=== PATIENT | male | born 1935 | race Caucasian/White ===

== ENCOUNTER 2017-02-28 13:39 | Emergency (ER) | payer MEDICARE, BC ==
[2017-02-28 14:40] LABS: BASOPHILS 0.2 % (0-2); EOSINOPHILS 1.8 % (0-7); HEMATOCRIT 40.6 % (42.0-54.0); HEMOGLOBIN 14.1 g/dL (13.5-17.5); IMMATURE GRANULOCYTES 0.4 % (0-5); LYMPHOCYTES 30.1 % (15-50); MCH 32.6 pg (26.0-34.0); MCHC 34.7 g/dL (31.0-37.0); MCV 93.8 fL (80.0-100.0); MEAN PLATELET VOLUME 9.6 fL (7.4-10.4); MONOCYTES 6.7 % (2-11); NEUTROPHILS 60.8 % (40-80); PLATELET COUNT 160 10x3/uL (130-400); RBC 4.33 10x6/uL (4.20-6.10); RDW 12.7 % (11.5-14.5); WBC 8.6 10x3/uL (4.8-10.8)
[2017-02-28 15:01] LABS: ALBUMIN 3.8 g/dL (3.4-5.0); ALKALINE PHOSPHATASE 84 U/L (46-116); ALT (SGPT) 17 U/L (10-68); BILIRUBIN - TOTAL 0.49 mg/dL (0.2-1.3); CALC OSMOLALITY 286 mosm/kg (275-300); CALCIUM 8.9 mg/dL (8.5-10.1); CARBON DIOXIDE 27.9 mmol/L (21.0-32.0); CHLORIDE - SERUM 106 mmol/L (98-107); CREATININE - SERUM 0.9 mg/dL (0.6-1.3); GLUCOSE 111 mg/dL (74-106); POTASSIUM - SERUM 3.8 mmol/L (3.5-5.1); PROTEIN - SERUM 6.9 g/dL (6.4-8.2); SODIUM 143 mmol/L (136-145); UREA NITROGEN 15 mg/dL (7-18); eGFR NON AFRICAN AMERICAN 86 mL/min (90-120)
== END 2017-02-28 18:47 | disposition home or self-care (01) ==
LOC: D.ER 13:39
PROVIDERS: Emergency Medicine
DX: I10 Essential (primary) hypertension (principal); R41.0 Disorientation, unspecified; R00.1 Bradycardia, unspecified

== ENCOUNTER 2020-05-26 17:40 | Inpatient (IN) | payer MEDICARE, BC ==
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
--- NOTE | 2020-05-26 19:13 | NUR ---
GROUP HOME CONTACTED REGARDING PATIENT'S PSYCH EVAL AT 191.
[2020-05-26 20:11] LABS: BASOPHILS 0.3 % (0-2); EOSINOPHILS 0.8 % (0-7); HEMATOCRIT 36.1 % (42.0-54.0); HEMOGLOBIN 12.2 g/dL (13.5-17.5); IMMATURE GRANULOCYTES 0.3 % (0-5); LYMPHOCYTE ABS# 2.26 10x3/uL (1.32-3.57); LYMPHOCYTES 29.1 % (15-50); MCH 33.4 pg (26.0-34.0); MCHC 33.8 g/dL (31.0-37.0); MCV 98.9 fL (80.0-100.0); MEAN PLATELET VOLUME 9.9 fL (7.4-10.4); MONOCYTES 6.3 % (2-11); NEUTROPHIL ABS# 4.91 10x3/uL (1.78-5.38); NEUTROPHILS 63.2 % (40-80); PLATELET COUNT 167 10x3/uL (130-400); RBC 3.65 10x6/uL (4.20-6.10); RDW 13.2 % (11.5-14.5); WBC 7.8 10x3/uL (4.8-10.8)
[2020-05-26 20:20] LABS: APTT 24.7 SECONDS (22.8-39.4); INR 1.2 (0.85-1.17); PROTIME 14.1 SECONDS (11.6-15.0)
[2020-05-26 20:21] LABS: CALC OSMOLALITY 281 mosm/kg (275-300); CALCIUM 8.7 mg/dL (8.5-10.1); CARBON DIOXIDE 28.6 mmol/L (21.0-32.0); CHLORIDE - SERUM 105 mmol/L (98-107); CREATININE - SERUM 0.9 mg/dL (0.6-1.3); GLUCOSE 96 mg/dL (74-106); POTASSIUM - SERUM 3.7 mmol/L (3.5-5.1); SODIUM 141 mmol/L (136-145); UREA NITROGEN 16 mg/dL (7-18); eGFR NON AFRICAN AMERICAN 86 mL/min (90-120)
[2020-05-26 20:34] LABS: ALBUMIN 3.3 g/dL (3.4-5.0); ALKALINE PHOSPHATASE 71 U/L (30-120); ALT (SGPT) 11 U/L (10-68); BILIRUBIN - TOTAL 0.54 mg/dL (0.2-1.3); CREATINE KINASE 58 UL (21-232); MAGNESIUM - SERUM 1.9 mg/dL (1.8-2.4); PROTEIN - SERUM 6.4 g/dL (6.4-8.2); TROPONIN-I 0.026 ng/mL (0.000-0.060)
[2020-05-26 21:17] LABS: NITRITE NEGATIVE (NEGATIVE)
[2020-05-26 21:18] LABS: BILIRUBIN NEGATIVE (NEGATIVE); KETONE MODERATE mg/dL (NEGATIVE); UDS - AMPHET NEGATIVE QUAL (NEGATIVE); UDS - BARB NEGATIVE QUAL (NEGATIVE); UDS - BENZO POSITIVE QUAL (NEGATIVE); UDS - COCAINE NEGATIVE QUAL (NEGATIVE); UDS - OPIATE NEGATIVE QUAL (NEGATIVE); UDS - PCP NEGATIVE QUAL (NEGATIVE); UDS - THC NEGATIVE QUAL (NEGATIVE); UROBILINOGEN NORMAL mg/dL (< 2)
[2020-05-26 21:25] LABS: SARS-CoV-2 ANTIGEN NEGATIVE- SARS-COV-2 (NEGATIVE)
[2020-05-26 23:54] VITALS: BP 154/95; BMI 23.4
[2020-05-27] MEDS ORDERED: HALDOL SL (00:35)
[2020-05-27 07:09] LABS: CHOL - HDL RATIO 2.8 ratio (2.3-4.9); LDL-HDL RATIO 1.5 ratio (1.5-3.5); THYROID STIMULATING HORMONE 1.79 uIU/mL (0.36-3.74)
--- NOTE | 2020-05-27 08:44 | NUR ---
PT SON CALLED ASKING TO SPEAK WITH PT AT THIS TIME. NURSE EDUCATED ON PHONE CALL TIMES, VISITATION TIMES. HE VERBALIZIED UNDERSTANDING.
--- NOTE | 2020-05-27 08:55 | NUR ---
PT COMING TO NURSES STATION DEMAMDING COFFEE AND STAFF EDCUATED PT ON COFFEE COMES AT MEAL TIMES. PT BECAME UPSET STATING "YALL ARE SOME LAZY SON OF BITCHES" ATTEMPTED TO REDIRECT PT AT THIS TIME. UNABLE TO REDIRECT PT STATING "I WANT OUT OF HERE NOW" NURSE STATED YOU WILL HAVE TO SPEAK WITH THE DOCTOR OR FARM HAND WHEN THEY COME IN." PT STATED WELL WHEN DO THEY GET HERE?" NURSE STATED "NO SET TIME FOR DOCTORS TO COME IN" PT BECAME UPSET WALKING BACK INTO HIS ROOM DEMANDING TO SEE THE DOCTOR AT THIS TIME. NURSE AGAIN EDUCATED PT AT THIS TIME. PT DID NOT VERBALIZE UNDERSTANDING.
[2020-05-27 09:00] VITALS: BP 158/79
--- NOTE | 2020-05-27 09:45 | NUR ---
NURSE SPOKE WITH PT SON BRADLY FROM [place] AT THIS TIME. PASSCODE GIVEN. HE WANTED TO KNOW HOW HE WAS DOING. NURSE STATED HE WAS UPSET AT THIS TIME AND WANTED TO LEAVE. NURSE STATED HE WOULD HAVE TO SPEAK WITH THE DOCTOR ABOUT LEAVING. HE STATED HE WANTED TO GET HIM HELP SO HE COULD TAKE HIM HOME. NURSE STATED HE WAS IN THE RIGHT PLACE MEDICATIONS ADJUSTMENTS WOULD BE MADE HERE WELL.
[2020-05-27 12:18] VITALS: Wt 76.4 kg
--- NOTE | 2020-05-27 12:55 | NUR ---
nurse CorinnaRN and YOHANA Garcia spoke with both sons Kobi and Boy. NO MAGNUS paperwork was on file on the chart. Kobi FRANCOISEvangelist stated he lives in [place] but the other brother lives in [place] could bring a copy of the paperwork to the hospital. background history given as well. Pt has been displaying agreesion with caregivers such as [facility], his nurse Leroy with [facility]. [facility]PS dietitian consultant was called and recommanded family to bring pt to the hospital for care. Son brought medication list as well. Pt 6 weeks ago in a facility and pt has been increasing in agression over the course of 2 weeks as well. pt family wants pt to seek help. pt did not allow family to assist with care or outside caregivers.
--- NOTE | 2020-05-27 13:15 | NUR ---
pt son janet was here at this time. medication list given to nurse and POA paperwork. he stated he just wanted his dad to get better and to know he was doing the right thing. nurse stated he was in the best place to recieve the care he needs and the family wants him to get as well.
[2020-05-27] MEDS ORDERED: NAMENDA10 MG PO (13:39)
[2020-05-27] MEDS ORDERED: LISINOPRIL10 MG PO (13:39)
[2020-05-27] MEDS ORDERED: SINEMET 25-1001 EAC1 PO (13:40)
[2020-05-27] MEDS ORDERED: SEROQUEL50 MG (13:41)
[2020-05-27] MEDS ORDERED: DULCOLAX STOOL100 MG PO (13:44)
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
--- NOTE | 2020-05-27 16:23 | NUR ---
pt belongings sent to ED lockbox.
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
--- NOTE | 2020-05-27 22:08 | NUR ---
B)RECEIVED PATIENT SITTING IN THE HALLWAY. FREQUENTLY AT NURSE'S STATION RELATING "I WANT TO TELL MY SIDE OF THE STORY." ORIENTED TO SELF ONLY. EXCESSIVELY WORRIED AND PREOCCUPIED WITH WHAT HE FEELS HIS SON IS DOING TO HIM. COOPERATIVE WITH STAFF. RESTLESS. I)ADMINISTER MEDS AND MONITOR COMPLIANCE. REORIENT NEEDED. R)MED COMPLIANT. POOR REORIENTATION. PASSIVE AND IS PREOCCUPIED WITH HIS SON HAVING HIM BROUGHT HERE AND RELATES HE NOT GOING TO BREAK UP WITH GEM. P)CONTINUE POC AND PROVIDE SAFE ENVIRONMENT.
--- NOTE | 2020-05-28 10:42 | NUR ---
REC'D PT IN HALLWAY BY NURSES STATION. AWAKE AND ALERT TO PERSON ONLY. CALM AND COOPERATIVE WITH ASSESSMENT AT THIS TIME. PRESCRIBED MEDS PROVIDED ORDERED. MED COMPLIANT. REDIRECT AND REORIENT NEEDED. PT HAS LITTLE INSIGHT INTO HIS SITUATION. FALL PRECAUTIONS IN PLACE. WILL CPOC.
[2020-05-28 12:10] VITALS: BP 120/60
--- NOTE | 2020-05-28 20:12 | NUR ---
RECEIVED IN BEDROOM. RESTING QUIETLY WITH EYES OPEN. CALM AND COOPERATIVE WITH CARE AND ASSESSMENT. CONFUSED. NO SIGNS OF AGGRESSION. REDIRECT AND REORIENT NEEDED. WALING AROUND IN [place]INN OUTSIDE OF NURSES STATION AT THIS TIME. CONTINUE PLAN OF CARE.
[2020-05-28 21:11] VITALS: BP 148/91
[2020-05-29 10:34] VITALS: BP 130/86
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
--- NOTE | 2020-05-29 12:04 | NUR ---
PATIENT REFUSING TO EAT NOON MEAL DESPITE STAFF ENCOURAGEMENT. STATED, "I'M NOT GOING TO EAT BECAUSE I WANT TO IN HERE."
--- NOTE | 2020-05-29 16:38 | NUR ---
ALERT, OCCASIONALLY ASKS ABOUT HIS MONEY AND STATES THAT HE NEEDS TO LEAVE AND GO HOME. MEDS ADMIN PER ORDERS WITH COMPLETE MED COMPLIANCE NOTED. STATED, "IT WOULD BE BEST IF I WERE ." NO FURTHER ADVERSE BEHAVIORS NOTED. CONT PLAN OF CARE, MONITORING FOR SUICIDAL IDEATIONS.
--- NOTE | 2020-05-29 20:30 | NUR ---
RECEIVED IN BEDROOM. RESTING IN BED WITH EYES CLOSED. CALM AND COOPERATIVE WITH CARE AND ASSESSMENT. NO STATEMENTS OF SELF HARM VOICED. ENCOURAGE TO EXPRESS NEEDS. RESTING IN BED WITH EYES CLOSED AT THIS TIME. CONTINUE PLAN OF CARE.
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
[2020-05-29 20:49] VITALS: BP 150/83
--- NOTE | 2020-05-30 07:33 | NUR ---
REC'D PT IN BED WITH EYES OPEN. CALM AND COOPERATIVE WITH ASSESSMENT AT THIS TIME. PRESCRIBED MEDS PROVIDED ORDERED. MED COMPLIANT. AWAKE AND ALERT TO PERSON ONLY. MED COMPLIANT. PT IS VERY ANXIOUS AND WORRIED AT THIS TIME. REDIRECT AND REORIENT NEEDED. FALL PRECAUTIONS IN PLACE. WILL CPOC.
[2020-05-30 08:00] VITALS: BP 139/66
[2020-05-30 08:13] LABS: RAPID PLASMA REAGIN Non Reactive (Non Reactive)
--- NOTE | 2020-05-30 15:02 | NUR ---
Nutrition Re-Assessment Diet: Regular PO intake: ~56% average x last 6 meals Last BM: none recorded since admit x 4 days now Wt: 169# (05/28/20); Admit wt: 167.8# (05/26/20) Meds reviewed, no new chem labs Estimated nutrition needs and nutrition diagnosis remain unchanged from initial nutrition assessment at this time. Patient is progressing towards meeting nutrition goals at this time. Recommendations/Interventions: -Recommend continue current diet. Will continue to honor food preferences. -Recommend encourged PO intake at meal times. -Offer oral nutrition supplements. -RD will follow-up within 7 days.
--- NOTE | 2020-05-30 15:41 | PN ---
PATIENT:DANITA RADER MEDICAL RECORD: [id number] LOCATION:[facility] ADMISSION DATE: 05/26/20 PROGRESS NOTE DATE OF SERVICE: 05/29/2020 SUBJECTIVE: The patient's case was discussed with staff. He has no new complaint. OBJECTIVE: The patient is partially oriented and denies that he would seek to harm himself. ASSESSMENT: 1. Parkinson's related dementia. 2. Major depression. PLAN: This patient has a dementia and it is not in the early stages. I am not sure quite how advanced it is and it may be partially masked by an underlying depressive illness, but there is no doubt that he is impaired significantly from a cognitive standpoint and he is not capable of making reasonable informed consent decisions about his person or state. I have reviewed his current medications. He has been started on antidepressant medication. I am going to increase the dose of that tomorrow if he has no side effects. He is denying that he wants to hurt himself, but again his primary diagnosis is dementia, specifically of the Parkinson's variety and a secondary diagnosis is the depression. TRANSINT:[id number] Voice Confirmation ID: [id number] DOCUMENT ID: [id number] VESNA DRAKE MD at 1541 CC: [id number] DICTATION DATE: 05/29/20 1637 INSOLE AND OUTSOLE PREPARER: 05/30/20 0023 [facility] [address] [place] [address]
--- NOTE | 2020-05-30 20:17 | NUR ---
RECEIVED IN DAYROOM. SITTING IN A CHAIR WITH PEERS AT HIS SIDE. CALM AND COOPERATIVE WITH CARE AND ASSESSMENT. CONFUSED. SOCIAL AT TIMES. REDIRECT AND REORIENT NEEDED. CONTINUES TO SIT CALMLY IN DAYROOM. CONTINUE PLAN OF CARE.
[2020-05-30 20:29] VITALS: BP 120/95
[2020-05-31 10:34] VITALS: BP 132/74
--- NOTE | 2020-05-31 14:10 | NUR ---
Rec'd patient this am ambulatory in the hallway. He is A/O times one to person. He is med compliant and took his meds whole. He attended group activities/ therapy but participated very little. He has small tremors to hands. He is very confused and most always is looking for something. He has a purpose for wandering. He has been cooperative with staff and has not demonstrated any aggressive behavior to staff or other patients. He is not always redirectable.
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
[2020-05-31 20:00] VITALS: BP 140/92
--- NOTE | 2020-05-31 23:02 | NUR ---
B)RECEIVED PATIENT LYING IN BED. ORIENTED TO PERSON, PLACE AND MONTH. POOR INSIGHT INTO THE REASON FOR HOSPITALIZATION RELATING "WAITING ON THE DISH MAKER TO MAKE A DECISION IF I CAN LEAVE." PREOCCUPIED WITH HIS MONEY THAT IS IN THE SAFE AND HIS SUITCASE IS MISSING. EXPLAINED TO PATIENT HE HAS $434.00 IN THE SAFE AND HIS SUITCASE IS LOCKED UP. PATIENT APPEARED RELIEVED TO KNOW WHERE HIS MONEY AND SUITCASE IS. WITHDRAWN AROUND PEERS. I)ADMINISTER MEDS AND MONITOR COMPLIANCE. REORIENT NEEDED. R)MED COMPLIANT. REORIENTS HOWEVER IS FORGETFUL AND REQUIRES REORIENTATION. P)CONTINUE POC AND PROVIDE SAFE ENVIRONMENT,
[2020-06-01 07:52] VITALS: BP 148/83
--- NOTE | 2020-06-01 11:56 | NUR ---
PT SITTING IN CHAIR AT THIS SHIFT. PT IS CALM AND COOPERATIVE WITH STAFF WHEN ASKED. WITHDRAWN FROM STAFF AND PEERS. PT ASKED STAFF "WHEN CAN I HAVE FREIGHT HANDLER?" NURSE EDUCATED THAT A ATTONERY CAN NOT BE HERE ON THE UNIT BUT HE IS D/C THEN HE COULD OBTAIN ONE FROM HE D/C'S. PT CAN MAKE NEEDS KNOWN. PT WANTS TO KNOW WHEN HE CAN LEAVE FROM HERE AND WHO HE NEEDS TO TALK TO LEAVE. AMBULATES. INCONTIENT EPISODES NOTED. CONT TO REDIRECT AND REORIENT NEEDED. BED ALARM IN PLACE AND ACTIVE. WILL CONT PLAN OF CARE.
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
--- NOTE | 2020-06-01 17:32 | NUR ---
pt served paperwork stating his son obtained guardianship. he was presented with paperwork. nurse explained paperwork to pt at this time. he stated he did not like that idea at all. i do not believe she did it."
--- NOTE | 2020-06-01 18:13 | NUR ---
pt friend called G, Brito called. Passocde given.
--- NOTE | 2020-06-01 18:18 | NUR ---
pt on the phone with friend at this time stating this place is terrible and we are holding his contact with his GF and can he his friend call her at this time. he does not have her number and can not get hold of his GF and we wont let them cause we are doing some type of case on him. he verbalized understanding.
--- NOTE | 2020-06-01 19:56 | NUR ---
B) Patient is alert and oriented to person and being in a hospital, anxious and confused, worried about his money, I) Administered scheduled medications as ordered, redirected as needed, PRN Ativan 0.5 mg PO given with HS medications, R) Medication compliant, restless at times, P) Continue plan of care.
[2020-06-01 20:00] VITALS: BP 154/85
[2020-06-02 07:48] VITALS: BP 125/83
--- NOTE | 2020-06-02 13:17 | NUR ---
NUTRITION FOLLOW UP: COMMENTS: Patient experiencing a lower PO intake. No new labs since 05/26 DIET: Regular Diet PO INTAKE: 45% avg for last 8 meals; 83% avg for last 6 snacks WEIGHT: 05/28- 169 lbs BM: x 1 on 06/01 SIG MEDS: Colace, Sinemet SIG LABS: No new labs RECOMMENDATIONS: Continue Regular diet as tolerated Offer nutritional supplements if PO intake continues < 50% avg Encourage PO intake and assistance with meals if needed RD to follow up within 7 days
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
--- NOTE | 2020-06-02 17:11 | NUR ---
PT EATING AT THIS TIME. CALM AND COOPERATIVE WITH STAFF. CONFUSION NOTED. ALERT TO PERSON, PLACE. DISORIENTED TO TIME AND SITUATION. PT CONFUSED ABOUT WHY HE IS HERE AND HOW HE CAN GO HOME. PT IS ANXIOUS ABOUT GOING HOME. CONSTANT REDIRECTION AND ASSURANCE GIVEN. NURSE HAS GAVE NURSE AND DR NAME SEVERAL TIMES A SHIFT. CAN MAKE NEEDS KNOWN. AMBULATES. PERICARE NEEDED. BED ALARM ON AND IN PLACE. WILL CONT PLAN OF CARE.
[2020-06-02 20:00] VITALS: BP 151/98
--- NOTE | 2020-06-02 20:56 | NUR ---
PT ALERT AND ORIENTED TO SELF ONLY. ABLE TO AMBULATE ON HIS OWN. MAKES NEEDS KNOWN. COMPLIANT WITH ALL MEDICATIONS. STATES" I WANT TO GET OUT OF HERE." EASY TO REDIRECT. MONITOR FOR SAFETY.
[2020-06-03 09:42] VITALS: BP 118/73
--- NOTE | 2020-06-03 10:43 | PN ---
PATIENT:DANITA RADER MEDICAL RECORD: [id number] LOCATION:[facility] ADMISSION DATE: 05/26/20 PROGRESS NOTE DATE OF SERVICE: 06/02/2020 SUBJECTIVE: The patient's case was discussed with staff. He has no new complaint. OBJECTIVE: The patient denies that he would seek to harm himself or others. He is only oriented to person, although he is partially oriented to other circumstances. He does know he is in a hospital, but cannot tell me which one. He also knows he does not want to be in the hospital and again goes into great detail explaining his circumstances and then after I explained the situation that is necessitating that he is here he starts the conversation over from the beginning. ASSESSMENT: 1. Parkinson's related dementia. 2. Major depression. PLAN: The patient apparently has a long history of alcohol abuse and reportedly some marijuana abuse. At the time of admission, there was a toxicology screen that did not show any marijuana, but it did show that he was positive for benzodiazepine. Because of his level of anxiety, I am going to treat him with a low dose of a benzodiazepine. I hope that it will assist him with the level of emotional distress he is currently experiencing. TRANSINT:[id number] Voice Confirmation ID: [id number] DOCUMENT ID: [id number] VESNA DRAKE MD at 1043 CC: [id number] DICTATION DATE: 06/02/20 1537 BREAKER UNIT ASSEMBLER: 06/02/20 2246 ADM IN [place] [id number] [place] [address]
--- NOTE | 2020-06-03 16:58 | NUR ---
ALERT, RESTLESS, COOPERATIVE. FREQUENTLY ASKS NURSE WHEN DR. DRAKE WILL ARRIVE SO THAT HE COULD BE DISCHARGED. DR DRAKE ROUNDED EARLIER THIS SHIFT, BUT PATIENT CANNOT REMEMBER HIS VISIT. PATIENT FREQUENTLY ASKS ABOUT HIS MONEY. MEDS ADMIN PER ORDERS WITH COMPLETE MED COMPLIANCE NOTED. NO ADVERSE REACTION NOTED TO MEDS. PATIENT QUITE PLEASANT. CONTINUE PLAN OF CARE.
[2020-06-03 22:17] VITALS: BP 145/90
--- NOTE | 2020-06-03 22:58 | NUR ---
PT IS ALERT AND ORIENTED TO SELF ONLY. RECEIVED IN HIS ROOM IN BED WITH EYES OPEN. VERY CONFUSED AND ASKS FREQUENTLY FOR DR. DRAKE. RELATES CONCERN THAT HE DOESNT HAVE HIS GLASSES. NO GLASSES LISTED ON INVENTORY SHEET. COMPLIANT WITH ALL MEDICATIONS. EASY TO REDIRECT. REQUIRES REQUENT REDIRECTION. MONITOR FOR SAFETY.
[2020-06-04 08:00] VITALS: BP 142/72
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
--- NOTE | 2020-06-04 18:04 | NUR ---
ALERT, CALM, COOPERATIVE, CONFUSED, PLEASANT, POOR MEMORY. WILL REPEATEDLY ASK THE SAME QUESTIONS. MEDS ADMIN PER ORDERS WITH COMPLETE MED COMPLIANCE. NO AGGRESSION NOTED. CONTINUE POC.
--- NOTE | 2020-06-04 20:01 | NUR ---
RECEIVED IN BEDROOM. RESTING IN BED WITH EYES OPEN. STAES HE WANTS TO TALK TO THE DOCTOR AND GO HOME TOMORROW. CALM AND COOPERATIVE WITH CARE AND ASSESSMENT. ENCOURAGE TO EXPRESS NEEDS. REDIRECT AND REORIENT NEEDED. CONTINUES TO REST QUIETLY IN BED. CONTINUE PLAN OF CARE.
[2020-06-04 21:15] VITALS: BP 137/85
[2020-06-05 08:27] VITALS: BP 131/76
--- NOTE | 2020-06-05 13:29 | PN ---
PATIENT:DANITA RADER MEDICAL RECORD: [id number] LOCATION:[facility] ADMISSION DATE: 05/26/20 PROGRESS NOTE DATE OF SERVICE: 06/04/2020 SUBJECTIVE: The patient's case was discussed with staff. He has no new complaint. OBJECTIVE: The patient is wanting to be discharged and the reasons for him having to be here have been explained to him many times. He is not suicidal and he is not aggressive. ASSESSMENT: Dementia. PLAN: Current medicines have been reviewed. He will be maintained on them. His long-term prognosis is guarded. I anticipate he can be discharged soon. TRANSINT:[id number] Voice Confirmation ID: [id number] DOCUMENT ID: [id number] VESNA DRAKE MD at 1329 CC: [id number] DICTATION DATE: 06/04/20 1109 TRANSIT MECHANIC: 06/04/20 1422 ADM IN [facility] [address] [place] [address]
--- NOTE | 2020-06-05 17:30 | NUR ---
RECEIVED IN PATIENT ROOM. CALM AND COOPERATIVE WITH CARE AND ASSESSMENT. VERY CONFUSED. DEMANDING TO LEAVE. WANDERING UNIT. EXIT SEEKING. REDIRECT AND REORIENT NEEDED. EATING DINNER AT THIS TIME. CONTINUE PLAN OF CARE.
[2020-06-05 20:00] VITALS: BP 146/90
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
--- NOTE | 2020-06-06 15:30 | PN ---
PATIENT:DANITA RADER MEDICAL RECORD: [id number] LOCATION:[facility] ADMISSION DATE: 05/26/20 PROGRESS NOTE DATE OF SERVICE: 06/05/2020 SUBJECTIVE: The patient's case was discussed with staff. He has no new complaint. OBJECTIVE: The patient is in good behavioral control. He has no thoughts of harming himself or others, but is confused about the circumstances that he finds himself in. He asks repeated questions about the process and what is going on. He is distressed by it, but again is not disruptive in any way. ASSESSMENT: Parkinson's-related dementia. PLAN: Current medicines have been reviewed and will be maintained. Placement has been arranged for the patient at [facility] and hopefully he can be transitioned there soon. TRANSINT:[id number] Voice Confirmation ID: [id number] DOCUMENT ID: [id number] VESNA DRAKE MD at 1530 CC: [id number] DICTATION DATE: 06/05/20 1618 REFERRAL MANAGEMENT LIAISON: 06/06/20 0111 ADM IN [facility] [address] [place] [address]
--- NOTE | 2020-06-06 17:40 | NUR ---
RECEIVED IN PATIENT ROOM. CALM AND COOPERATIVE WITH CARE AND ASSESSMENT. CONFUSED. VERY FORGETFUL. REPEATEDLY ASKS SAME QUESTIONS OVER AND OVER. REDIRECT AND REORIENT NEEDED. EATING DINNER AT THIS TIME. CONTINUE PLAN OF CARE.
[2020-06-06 20:00] VITALS: BP 147/95
--- NOTE | 2020-06-06 20:58 | NUR ---
RECEIVED IN HALLWAY. AT NURSES STAION ASKING ABOUT HIS MONEY AND WHAT IT WILL TAKE FOR HIM TO BE ABLE TO GO HOME TOMORROW. ASK THE SAME QUESTIONS THOUGHOUT THE EVENING. CALM AND COOPERATIVE WITH CARE AND ASSESSMENT. REDIRECT AND REORIENT NEEDED. RESTING QUIETLY IN BED AT THIS TIME. CONTINUE PLAN OF CARE.
[2020-06-07 08:32] VITALS: BP 126/74
--- NOTE | 2020-06-07 16:06 | PN ---
PATIENT:DANITA RADER MEDICAL RECORD: [id number] LOCATION:[facility] ADMISSION DATE: 05/26/20 PROGRESS NOTE DATE OF SERVICE: 06/06/2020 SUBJECTIVE: The patient's case was discussed with staff. He has no new complaint. OBJECTIVE: The patient is partially oriented and as has been documented before, the situation is explained to him and before the last question is answered, he starts over with the same round of questioning. It is a very sad situation. There is no way around this except to simply walk away from him after we have gone through this once. He is highly distressed and confused. He is not dangerous. Despite his frustration, he has not been threatening or aggressive and he is not psychotic. He is just confused because of a dementing illness and in my opinion, he has done brain damage to himself through this chronic marijuana use through his adult life. ASSESSMENT: Dementia. PLAN: The patient will be transitioned out of the hospital into assisted living the day after tomorrow. His room is being arranged. He is going to be furnished with familiar furniture and decorative items. I hope that he will be calmer once he arrives there. I do not see a need for aggressive pharmacologic management. TRANSINT:[id number] Voice Confirmation ID: [id number] DOCUMENT ID: [id number] VESNA DRAKE MD at 1606 CC: [id number] DICTATION DATE: 06/06/20 171 BAD CREDIT COLLECTOR: 06/07/20 0028 ADM IN [place] [id number] [place] [address]
[2020-06-07] MEDS ORDERED: ZOLOFT50 MG PO (16:07)
[2020-06-07] MEDS ORDERED: XANAX0.25 MG PO (16:07)
--- NOTE | 2020-06-07 16:14 | NUR ---
Nutrition Re-Assessment Diet: Regular PO intake: ~87% average x last 9 meals Last BM: 06/03/20 Wt: 165# (06/04/20); Admit Wt: 167.8# (05/26/20) Meds reviewed No new chem labs Estimated nutrition needs and nutrition diagnosis remain unchanged from initial nutrition assessment at this time. Patient is progressing towards meeting nutrition goals at this time. Recommendations/Interventions: -Recommend continue current diet. Will continue to honor food preferences. -RD will follow-up within 7 days.
--- NOTE | 2020-06-07 17:07 | NUR ---
ORIENTED TO SELF.IS COMPLIANT WITH STAFF AND MEDS.ASKED THE SAME QUESTIONS OVER AND OVER.VERY POOR SHORT TERM MEMORY.WILL CONTINUE WITH CURRENT PLAN OF CARE,MONITOR FOR CHANGES AND SAFETY.
--- NOTE | 2020-06-07 17:40 | NUR ---
RECEIVED IN PATIENT ROOM. RESTING IN BED WITH EYES OPEN. CALM AND COOPERATIVE WITH CARE AND ASSESSMENT. VERY FORGETFUL. ASKS QUESTIONS OVER AND OVER. PLEASANT. NO AGGRESSIVE BEHAVIOR. REDIRECT AND REORIENT NEEDED. EATING DINNER AT THIS TIME. CONITNUE PLAN OF CARE.
[2020-06-07 20:00] VITALS: BP 167/90
[2020-06-07 20:50] LABS: SARS-CoV-2 ANTIGEN NEGATIVE- SARS-COV-2 (NEGATIVE)
--- NOTE | 2020-06-07 21:38 | NUR ---
PT IS ALERT AND ORIENTED TO SELF, PLACE AND TIME. ABLE TO VOICE NEEDS. CALM AND COOPERATIVE WITH STAFF. RELATES CONCERN THAT HE HAS MONEY IN SECURITY AND WANTS TO MAKE SURE IT GOES WITH HIM WHEN HE DISCHARGES IN THE MORNING. COMPLIANT WITH ALL MEDICATIONS. EASY TO REDIRECT. STATES APPRECIATION FOR STAFF. COVID ANTIGEN COMPLETED FOR D/C. MONITOR FOR SAFETY.
--- NOTE | 2020-06-08 09:29 | NUR ---
NURSE CALLED REPORT INTO [facility] AT [facility]. NURSE GAVE BACKGROUND HX, ALLERGIES, CODE STATUS, AMBULATORY STATUS AND COVID RESULTS. ALL PAPERWORK FAXED AND PAPERCOPY BEING SENT WITH PT AT THIS TIME.
[2020-06-08 09:42] VITALS: BP 143/78
--- NOTE | 2020-06-08 09:44 | NUR ---
NURSE SPOKE WITH PT SON DANITA AT THIS TIME. HE REVERIFIED NAME OF PHARMACY AND GAVE PRIMARY CARE DOCTOR OF DR. VELÁZQUEZ. APPT TIME FOR Friday06/16/20. NURSE CALLED MEDICATIONS INTO [facility] ON [facility] TO [facility]. NURSE WILL NOTIFIY FACILITY OF FOLLOW UP INFORMATION.
--- NOTE | 2020-06-08 10:05 | NUR ---
NURSE SPOKE WITH SCOTTIE AT [facility] ABOUT PT FOLLOW UP APPT AND WHERE PT MEDICATIONS WERE CALLED INTO. ALL MEDICATIONS CALLED INTO [facility] ON [address] TO [address]. CRISTEL VELÁZQUEZ, PCP AT [phone]. NURSE GAVE SON BRADLY NUMBER AT THIS TIME: [phone]. SHE STATED SHE WOULD CALL ABOUT SON PICKING UP MEDICATIONS FOR PT.
--- NOTE | 2020-06-08 12:16 | NUR ---
[facility] NOTIFIED OF PT D/C THIS SHIFT AND PAPERWORK SENT TO [facility].
--- NOTE | 2020-06-08 13:09 | PN ---
PATIENT:DANITA RADER MEDICAL RECORD: [id number] LOCATION:[facility] ADMISSION DATE: 05/26/20 PROGRESS NOTE DATE OF SERVICE: 06/07/2020 SUBJECTIVE: The patient's case was discussed with staff. He has no new complaint. OBJECTIVE: The patient denies intent to harm himself or others. He tolerates his medicines well. His long-term prognosis is guarded. ASSESSMENT: Dementia. PLAN: The patient will be transitioned out of the hospital into the assisted living center tomorrow. TRANSINT:[id number] Voice Confirmation ID: [id number] DOCUMENT ID: [id number] VESNA DRAKE MD at 1309 CC: [id number] DICTATION DATE: 06/07/201752 GLAZE HANDLER: 06/07/20 5874 ADM IN [facility] [address] [place] [address]
--- NOTE | 2020-06-08 14:30 | NUR ---
PT D/C WITH [place] AT THIS TIME. ALL PERSONAL BELONGINGS SENT WITH PT AT THIS TIME. MONEY AND WATCH GIVEN TO TRANSPORT. PT WAS IN A GOOD MOOD UPON D/C. CALM AND COOPERATIVE. PT AMBULATED TO TRANSPORT [facility]AN WITH STAFF. PAPERWORK FAXED, PAPER COPY SENT AND MEDICATIONS CALLED INTO PHARMACY. NURSE GAVE INFORAMTION TO [place].
== END 2020-06-08 14:30 | disposition home health service (06) | DRG 57 ==
LOC: D.ER 17:40 → D.PSYCH 23:20
PROVIDERS: Family Medicine; ADMIT Psychiatry & Neurology Psychiatry; ATTEND Psychiatry & Neurology Psychiatry
DX: G20 Parkinson's disease (principal); F02.81 Dementia in other diseases classified elsewhere, unspecified severity, with behavioral disturbance; I10 Essential (primary) hypertension; K59.01 Slow transit constipation

== ENCOUNTER 2020-07-08 15:19 | Emergency (ER) | payer MEDICARE, BC ==
[~2020-07-08] VITALS: Ht 182.9 cm; Wt 78.2 kg
[~2020-07-08 15:19] MED LIST: DULCOLAX STOOL100 MG PO; HALDOL SL; LISINOPRIL10 MG PO; NAMENDA10 MG PO; SEROQUEL50 MG; SINEMET 25-1001 EAC1 PO; XANAX0.25 MG PO; ZOLOFT50 MG PO
[2020-07-08 15:24] VITALS: Ht 182.9 cm; Wt 78.2 kg
[2020-07-08 16:25] LABS: BASOPHILS 0.3 % (0-2); EOSINOPHILS 0.7 % (0-7); HEMATOCRIT 39.8 % (42.0-54.0); HEMOGLOBIN 13.3 g/dL (13.5-17.5); IMMATURE GRANULOCYTES 0.2 % (0-5); LYMPHOCYTE ABS# 1.96 10x3/uL (1.32-3.57); LYMPHOCYTES 21.9 % (15-50); MCH 33.3 pg (26.0-34.0); MCHC 33.4 g/dL (31.0-37.0); MCV 99.5 fL (80.0-100.0); MEAN PLATELET VOLUME 9.7 fL (7.4-10.4); MONOCYTES 7.4 % (2-11); NEUTROPHILS 69.5 % (40-80); PLATELET COUNT 185 10x3/uL (130-400); RDW 13.6 % (11.5-14.5); WBC 8.9 10x3/uL (4.8-10.8)
[2020-07-08 16:26] LABS: BILIRUBIN NEGATIVE (NEGATIVE); KETONE NEGATIVE (NEGATIVE); NITRITE NEGATIVE (NEGATIVE); SQUAMOUS EPITHELIAL 0-5 HPF (0-4); UROBILINOGEN NORMAL mg/dL (< 2)
[2020-07-08 16:27] LABS: AMORPHOUS SEDIMENT >1+ LPF (NONE SEEN); BACTERIA MANY HPF (NONE SEEN)
[2020-07-08 16:48] LABS: CALC OSMOLALITY 283 mosm/kg (275-300); CALCIUM 8.7 mg/dL (8.5-10.1); CARBON DIOXIDE 27.6 mmol/L (21.0-32.0); CHLORIDE - SERUM 104 mmol/L (98-107); GLUCOSE 101 mg/dL (74-106); POTASSIUM - SERUM 3.8 mmol/L (3.5-5.1); SODIUM 142 mmol/L (136-145); UREA NITROGEN 16 mg/dL (7-18); eGFR NON AFRICAN AMERICAN 76 mL/min (90-120)
[2020-07-08 16:54] LABS: ALBUMIN 3.5 g/dL (3.4-5.0); ALKALINE PHOSPHATASE 83 U/L (30-120); ALT (SGPT) 10 U/L (10-68); BILIRUBIN - TOTAL 0.38 mg/dL (0.2-1.3); PROTEIN - SERUM 6.7 g/dL (6.4-8.2)
[2020-07-08] MEDS ORDERED: CEPHALEXIN500 M1 PO (18:09)
[2020-07-08 18:19] VITALS: BP 168/86
== END 2020-07-08 18:20 | disposition home or self-care (01) ==
LOC: D.ER 15:19
PROVIDERS: Family Medicine
DX: N39.0 Urinary tract infection, site not specified (principal); I10 Essential (primary) hypertension; G20 Parkinson's disease; F03.90 Unspecified dementia, unspecified severity, without behavioral disturbance, psychotic disturbance, mood disturbance, and anxiety